=== PATIENT | male | born 1975 | race Hispanic/Latino ===

== ENCOUNTER 2019-11-12 12:51 | Emergency (ER) | payer OTHER, SELFPAY ==
--- NOTE | 2019-11-12 13:04 | DI.RAD.S_ITS ---
PROCEDURE: XR SHOULDER LT MIN 2V INDICATIONS: severe left shoulder pain, lump at AC TECHNIQUE: 3 views of the shoulder were acquired. COMPARISON: None. FINDINGS: Bones: No fractures or dislocations. No suspicious bony lesions. Visualized ribs appear intact. Extensive inferiorly directed osteophyte off the distal clavicle. Soft tissues: No suspicious soft tissue calcifications. IMPRESSION: There is extensive inferiorly directed osteophyte off the distal clavicle which may result in some sort of impingement. No evidence acute bony abnormality of the left shoulder. If clinical suspicion and/or symptoms persist, further assessment with repeat plain films, or advanced imaging (e.g., CT, MRI, or bone scan) may be helpful for further assessment. Dictated by: Clyde Keller M.D. on 11/12/2019 at 12:22 Approved by: Clyde Keller M.D. on 11/12/2019 at 12:23
--- NOTE | 2019-11-12 13:10 | ED_ITS ---
HPI - Extremity Injury (Upper) General Chief Complaint: Extremity Injury, Upper Stated Complaint: Dislocated Left Shoulder, HX Fall in 2007 Time Seen by Provider: 11/12/19 12:55 Source: patient Mode of arrival: Ambulatory Limitations: no limitations History of Present Illness HPI narrative: 43M smoker with noncontributory medical history presents with a chief complaint of left shoulder pain. He states it has been causing him tremendous pain since rolling over awkwardly in bed a few nights ago. He now has pain with any range of motion. He denies any numbness, tingling or weakness. He admits to a work related injury about 10 years ago that he never had evaluated. He denies any head or neck pain. He has taken tylenol and motrin without any relief. Related Data Previous Rx's Medication Instructions Recorded ketorolac 10 mg PO Q6H PRN #14 tab 11/12/19 Review of Systems Constitutional Constitutional: Denies chills, Denies fatigue, Denies fever(s), Denies frequent falls, Denies lethargy and Denies weakness Eyes Eyes: Denies change in vision, Denies eye discharge, Denies irritation and Denies loss of vision ENT Ears, Nose, Mouth, and Throat: Denies change in voice, Denies dizziness, Denies neck pain, Denies sore throat and Denies throat swelling Cardiovascular Cardiovascular: Denies chest pain, Denies irregular heart rhythm, Denies lightheadedness, Denies palpitations, Denies dyspnea, Denies dyspnea on exertion and Denies orthopnea Respiratory Respiratory: Denies cough, Denies dyspnea, Denies dyspnea on exertion and Denies wheezing Gastrointestinal Gastrointestinal: Denies abdominal pain, Denies change in bowel habits, Denies diarrhea, Denies nausea and Denies vomiting Musculoskeletal Musculoskeletal: Reports arthralgias, Reports limited range of motion, Denies neck pain and Denies numbness Integumentary/Breasts Skin/Breast: Denies pruritus, Denies erythema, Denies rash and Denies wounds Neurologic Neurologic: Denies behavioral changes, Denies confusion, Denies dizziness, Denies frequent falls, Denies loss of vision, Denies numbness and Denies weakness Psychiatric Psychiatric: Denies anxiety, Denies behavioral changes, Denies confusion, Denies depression, Denies homicidal ideation and Denies suicidal ideation Endocrine Endocrine: Denies fatigue, Denies flushing and Denies palpitations Hematologic/Lymphatic Hematologic/Lymphatic: Denies easy bruising Allergic/Immunologic Allergic/Immunologic: Denies urticaria, Denies throat swelling and Denies wheezing Patient History Social History Smoking Status: Current every day smoker Smoking Status: Current every day smoker alcohol intake frequency: 0-2 drinks per day Substance Use Type: does not use Exam Narrative Exam Narrative: GENERAL: [43] year old patient appears stated age. Well- nourished, well-developed patient, in mild distress. HEAD: Atraumatic. Normocephalic. EYES: Pupils equal round and reactive. Extraocular motions intact. No scleral icterus. No injection or drainage. ENT: Nose without bleeding, purulent drainage. Throat without erythema, tonsillar hypertrophy or exudate. Airway patent. NECK: Trachea midline. Non tender CARDIOVASCULAR: Regular rate and rhythm without murmurs, gallops, or rubs. RESPIRATORY: Clear to auscultation. Breath sounds equal bilaterally. No wheezes, rales, or rhonchi. GASTROINTESTINAL: Abdomen soft, non-tender, nondistended. EXTREMITIES: Full but painful range of motion of left shoulder. Tenderness the AC joint with a bit of lateral step-off. No numbness, tingling or weakness. Patient has some posterior pain he reports in his right shoulder also but has full range of motion and strength BACK: Nontender without deformity or crepitance. No flank tenderness. NEURO: AOx3. SKIN: No rash or erythema of visible areas Initial Vital Signs Initial Vital Signs: Vital Signs Temperature 98.4 F 11/12/19 13:17 Pulse Rate 72 11/12/19 13:17 Respiratory Rate 15 11/12/19 13:17 Blood Pressure 142/86 H 11/12/19 13:17 Pulse Oximetry 96 11/12/19 13:17 Procedures Orthopedic Splinting/Casting Injury #1: Side: left Upper Extremity Injury Location: shoulder Upper Extremity Immobilizer: sling/shoulder immobilizer Post splinting neuro exam: intact Post splinting vascular exam: intact Placed by: Nursing Course Orders Ordered: ED Orders 11/12/19 13:04 XR shoulder LT min 2V Stat Vital Signs Vital signs: Vital Signs - 8 hr 11/12/19 13:17 Temperature 98.4 F Pulse Rate 72 Respiratory Rate 15 Blood Pressure 142/86 H Pulse Oximetry 96 Discharge Plan Departure Patient Disposition: Home Clinical Impression: AC separation Qualifiers: Encounter type: initial encounter Laterality: left Qualified Code(s): S43.102A - Unspecified dislocation of left acromioclavicular joint, initial encounter Acute shoulder pain Qualifiers: Laterality: left Qualified Code(s): M25.512 - Pain in left shoulder Discharge Date/Time: 11/12/19 13:40 Instructions: DI for AC Joint Separation Activity Restrictions/Additional Instructions: *You have been diagnosed with [acute on chronic left AC separation, possibly a poorly healed old fracture of your clavicle] *What to do: *Take medications as directed and where the supplied sling until follow-up *Follow up with your primary care provider in 2-3 days, call for an a ppointment. Let them know you were seen in the Emergency Department and that we ask that you be seen in follow up. I have also included contact info for the [facility] in [place] *Return to ER if you should have any new, worsening or concerning symptoms Prescriptions: New ketorolac 10 mg tablet 10 mg PO Q6H PRN (Reason: pain) Qty: 14 RF: 0 Referrals: Yaz Reyez MD [Physician] -
[2019-11-12 13:17] VITALS: BP 142/86; PULSE 72; RESP 15; TEMP 36.9; O2SAT 96; BMI 27.3
== END 2019-11-12 13:40 | disposition home or self-care (01) ==
PROVIDERS: Emergency Provider Emergency Medicine
DX: S43.102A Unspecified dislocation of left acromioclavicular joint, initial encounter (principal); M25.512 Pain in left shoulder
CPT/HCPCS: 73030; 99283

== ENCOUNTER 2019-12-12 13:39 | Emergency (ER) | payer OTHER, SELFPAY ==
[2019-12-12 13:55] VITALS: BP 148/105; PULSE 110; RESP 16; TEMP 36; O2SAT 96; BMI 24.3
--- NOTE | 2019-12-12 14:02 | DI.RAD.S_ITS ---
PROCEDURE: XR HUMERUS LT 2V INDICATIONS: pain and pop after lifting TECHNIQUE: 2 views of the humerus were acquired. COMPARISON: [facility], CR, XR HUMERUS RT 2V, 12/12/2019, 13:54. [facility], CR, XR SHOULDER LT MIN 2V, 11/12/2019, 13:07. FINDINGS: Bones: No acute fractures or dislocations. There is superior subluxation of the left acromioclavicular joint redemonstrated. Hypertrophic calcifications are redemonstrated along the inferior aspect of the distal left clavicle. Soft tissues: There is a small calcification adjacent to the greater tuberosity along the distal rotator cuff which may reflect calcific tendinitis. IMPRESSION: 1. No acute fracture or dislocation. 2. 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 3. Hypertrophic calcifications along the inferior aspect of the distal clavicle. The findings are nonspecific but are suggestive of dystrophic calcifications related to prior trauma. Dictated by: Larry Malhotra M.D. on 12/12/2019 at 14:32 Approved by: Larry Malhotra M.D. on 12/12/2019 at 14:37
--- NOTE | 2019-12-12 14:02 | DI.RAD.S_ITS ---
PROCEDURE: XR HUMERUS RT 2V INDICATIONS: pain and pop after lifting TECHNIQUE: 2 views of the humerus were acquired. COMPARISON: None. FINDINGS: Bones: No fractures or dislocations. No suspicious bony lesions. Soft tissues: No suspicious soft tissue calcifications. IMPRESSION: 1. No fracture or dislocation. Dictated by: Larry Malhotra M.D. on 12/12/2019 at 14:30 Approved by: Larry Malhotra M.D. on 12/12/2019 at 14:32
--- NOTE | 2019-12-12 16:36 | ED_ITS ---
HPI - Extremity Injury (Upper) <ИРИНА Herring - Last Filed: 12/12/19 23:57> General Chief Complaint: Extremity Injury, Upper Stated Complaint: pulled something in muscle Time Seen by Provider: 12/12/19 15:41 Source: patient Mode of arrival: Ambulatory Limitations: no limitations History of Present Illness HPI narrative: This is a 44-year-old male, smoker, who has history of remote injury to left shoulder 10 years ago and recent visit to ED about a month ago with left shoulder presents to ED with bilateral biceps discomfort and deformity. Patient reports he was picking up someone to help yesterday and felt something pulled in deltoid region. Patient right dominant hand. Patient also reports right deltoid/biceps pain radiating to right shoulder. Patient denies fall or contusion to right shoulder. 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 Patient reports pain is 7/10. He denies taking Cipro or other antibiotic medication recently or using anaerobic steroids in the past. Patient reports intact sensation in bilateral hand and is able to move fingers/wrist without difficulty. Denies taking any medications for pain. Related Data Previous Rx's Medication Instructions Recorded ketorolac 10 mg PO Q6H PRN #14 tab 11/12/19 Allergies Allergy/AdvReac Type Severity Reaction Status Date / Time No Known Allergies Allergy Verified 12/12/19 16:53 Review of Systems <ИРИНА Herring - Last Filed: 12/12/19 23:57> Review of Systems Narrative: General: Denies fever, chills, fatigue, malaise, sweats. Respiratory: Denies dyspnea, cough, wheezing, hemoptysis, sputum. Cardiovascular: Denies chest pain, palpitations, orthopnea, edema. Musculoskeletal: See HPI Skin: Denies rash, skin lesions, or other. Neurologic: Denies weakness, headache, numbness, change in speech, confusion, seizures, incoordination. Patient History <ИРИНА Herring - Last Filed: 12/12/19 23:57> Social History Smoking Status: Current every day smoker Smoking Status: Current every day smoker alcohol intake frequency: 0-2 drinks per day Substance Use Type: marijuana Exam <ИРИНА Herring - Last Filed: 12/12/19 23:57> Narrative Exam Narrative: General appearance: well developed, well nourished, in no acute distress. Head: normocephalic, atraumatic, no scalp lesions, non-tender. ENT: Hearing grossly intact. Nose without bleeding, purulent discharge. Airway patent. Neck/Thyroid: neck supple, full range of motion, no visible masses or meningeal signs. No JVD, non-tender without lymphadenopathy. Skin: no suspicious rashes, lesions over visible areas. Warm and dry and appropriate color for ethnicity. Heart: no clubbing, no cyanosis, no edema. Lungs: Breathing even and unlabored. No stridor. No accessory muscles used. Able to speak in full sentences. Chest: normal shape and expansion. Abdomen: non-obese, non-distended. Neurologic: alert and oriented. 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 Psych: good eye contact, normal affect. Initial Vital Signs Initial Vital Signs: Vital Signs Temperature 96.8 F L 12/12/19 13:55 Pulse Rate 110 H 12/12/19 13:55 Respiratory Rate 16 12/12/19 13:55 Blood Pressure 148/105 H 12/12/19 13:55 Pulse Oximetry 96 12/12/19 13:55 Extrem Right upper extremity: shoulder/upper arm Details: abnormal to inspection (Big ball of muscle in mid medial upper arm, laura arm appearance), tenderness, swelling, abnormal ROM Details: pain with active ROM (slow to abduct/adduct, forward elevation, difficulty with internal rotation) and pain with passive ROM and deformity, elbow/forearm Details: normal to inspection and normal ROM; no tenderness and no swelling and hand Details: normal to inspection, normal capillary refill, neuromotor exam normal, neurosensory exam normal, vascular exam Details: radial pulse present and normal capillary refill, normal ROM of fingers and no swelling; no tenderness Left upper extremity: shoulder/upper arm Details: abnormal to inspection (flaccid bicep/deltoid, high rising small bicep in medial upper arm when flexed), tenderness and abnormal ROM Details: pain with active ROM and pain with passive ROM, elbow/forearm Details: normal to inspection and normal ROM; no tenderness and no swelling and hand Details: normal to inspection, normal capillary refill, neuromotor exam normal, neurosensory exam normal, vascular exam Details: radial pulse present and normal capillary refill and normal ROM of fingers; no tenderness <Ralph Kincaid MD - Last Filed: 12/15/19 13:02> Initial Vital Signs Initial Vital Signs: Vital Signs Temperature 96.8 F L 12/12/19 13:55 Pulse Rate 110 H 12/12/19 13:55 Respiratory Rate 16 12/12/19 13:55 Blood Pressure 148/105 H 12/12/19 13:55 Pulse Oximetry 96 12/12/19 13:55 Procedures <ИРИНА Herring - Last Filed: 12/12/19 23:57> Orthopedic Splinting/Casting Injury #1: Side: right Upper Extremity Injury Location: upper arm Upper Extremity Immobilizer: Ryne wrap Post splinting neuro exam: intact Post splinting vascular exam: intact Placed by: Nursing Injury #2: Side: left Upper Extremity Injury Location: upper arm Upper Extremity Immobilizer: Ryne wrap Post splinting neuro exam: intact Post splinting vascular exam: intact Placed by: Nursing Scores <ИРИНА Herring - Last Filed: 12/12/19 23:57> GCS Rolanda coma scale eye opening: Spontaneous Rolanda coma scale verbal response: Orientated Mead coma scale motor response: Obey commands Mead coma scale total score: 15 Course <ИРИНА Herring - Last Filed: 12/12/19 23:57> Orders Ordered: Discontinued Medications Acetaminophen (Tylenol) 650 mg PO NOW ONE Stop: 12/12/19 16:46 Last Admin: 12/12/19 16:56 Dose: 650 mg Documented by: YASMINE Ibuprofen (Advil) 400 mg PO NOW ONE Stop: 12/12/19 16:46 Last Admin: 12/12/19 16:56 Dose: 400 mg Documented by: YASMINE Consultations Consultation #1: Dr. Kincaid consulted with physical findings and Xray test result. He recommended to evaluate with CT on upper extremity without contrast. NALLELY reza came to inform to consult radiologist this so cause high radiation exposure on patient. Consulted the radiologist and recommend US for MRI for bicep tendon rupture or other etiology but MRI which is not available at this time. He states CT is not recommended. However, US test is tech dependant and found that US reza had not done this study in the past and will defer US test. Time: 16:43 Consultation #2: Dr. Kothari consulted on the phone with physical findings and is was unable to obtain MRI today to confirm bicep tendon injury in bilateral upper arm. He recommended MRI test as well for his condition and likely he nasal surgeries to repair this. Dr. Kothari was informed patient was given the [facility] orthopedist information follow-up. Time: 19:03 Vital Signs Vital signs: Vital Signs - 8 hr 12/12/19 13:55 Temperature 96.8 F L Pulse Rate 110 H Respiratory Rate 16 Blood Pressure 148/105 H Pulse Oximetry 96 <Ralph Kincaid MD - Last Filed: 12/15/19 13:02> Orders Ordered: Discontinued Medications Acetaminophen (Tylenol) 650 mg PO NOW ONE Stop: 12/12/19 16:46 Last Admin: 12/12/19 16:56 Dose: 650 mg Documented by: YASMINE Ibuprofen (Advil) 400 mg PO NOW ONE Stop: 12/12/19 16:46 Last Admin: 12/12/19 16:56 Dose: 400 mg Documented by: YASMINE Vital Signs Vital signs: Vital Signs - 8 hr 12/12/19 13:55 Temperature 96.8 F L Pulse Rate 110 H Respiratory Rate 16 Blood Pressure 148/105 H Pulse Oximetry 96 MDM - Extremity Injury (Upper) <ИРИНА Herring - Last Filed: 12/12/19 23:57> Differential Diagnosis Differential diagnosis: Likely other (partial/full proximal bicep tendon injury, distal bicep tendon injury, tendonitis, shoulder strain) Medical Records Attestation: I reviewed the patient's medical records. Imaging Data XR-Humerus, RT: Radiologist's Impression: [address] [address] XRay Report Signed Patient: Rodriguez Miguel RMR#: [id number] : 1975Acct:[id number] Age/Sex: 44 / MDate of Service: 12/12/19 Loc: ED Accession Number: [id number] Procedure: XR humerus RT 2V Ordering Provider: Ralph Kincaid MD PROCEDURE: XR HUMERUS RT 2V INDICATIONS: pain and pop after lifting TECHNIQUE: 2 views of the humerus were acquired. COMPARISON: None. FINDINGS: Bones: No fractures or dislocations. No suspicious bony lesions. Soft tissues: No suspicious soft tissue calcifications. IMPRESSION: 1. No fracture or dislocation. Dictated by: Larry Malhotra M.D. on 12/12/2019 at 14:30 Approved by: Larry Malhotra M.D. on 12/12/2019 at 14:32 XR-Humerus, LT: Radiologist's Impression: [address] [address] XRay Report Signed Patient: Rodriguez Miguel RMR#: [id number] : 1975Acct:[id number] Age/Sex: 44 / MDate of Service: 12/12/19 Loc: ED Accession Number: [id number] Procedure: XR humerus LT 2V Ordering Provider: Ralph Kincaid MD PROCEDURE: XR HUMERUS LT 2V INDICATIONS: pain and pop after lifting TECHNIQUE: 2 views of the humerus were acquired. COMPARISON: [facility], CR, XR HUMERUS RT 2V, 12/12/2019, 13:54. [facility], CR, XR SHOULDER LT MIN 2V, 11/12/2019, 13:07. FINDINGS: Bones: No acute fractures or dislocations. There is superior subluxation of the left acromioclavicular joint redemonstrated. Hypertrophic calcifications are redemonstrated along the inferior aspect of the distal left clavicle. Soft tissues: There is a small calcification adjacent to the greater tuberosity along the distal rotator cuff which may reflect calcific tendinitis. IMPRESSION: 1. No acute fracture or dislocation. 2. 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 3. Hypertrophic calcifications along the inferior aspect of the distal clavicle. The findings are nonspecific but are suggestive of dystrophic calcifications related to prior trauma. Dictated by: Larry Malhotra M.D. on 12/12/2019 at 14:32 Approved by: Larry Malhotra M.D. on 12/12/2019 at 14:37 MDM Narrative Medical decision making narrative: This is a 44 year male who presents to ED with bilateral biceps/deltoid discomfort and deformity after he picked up someone last night and felt a pop. X-ray test does not show acute fractures or dislocation on humerus bilaterally. Left AC joint with superior displacement of the distal clavicle above the acromion with sequela of chronic AC joint separation. Physical exam is consistent with bilateral bicep tendon injury, likely proximal in right arm and distal in left arm. Patient has intact sensation and circulation distally. Slight difficulty internal rotation on righ t arm due to bulkage of right bicep, otherwise slow but is able to abduct and adduct affected arm with forward flexion. Considered MRI tests but it was not able to obtain today. Considered US test as radiologist suggested but it is tech dependent for a good ultrasound exam which tech has not had done it before and this was deferred. Affected arm was placed on Ryne wrap and patient was medicated with Tylenol and Motrin for discomfort. Advised to use ice pack on affected site for pain and swelling. Patient advised to follow-up with [facility] orthopedist for further evaluation and imaging test. Return precautions were discussed with patient and he verbalized understanding in agreement with treatment plan. Discharge Plan Departure Patient Disposition: Home Clinical Impression: Injury of tendon of biceps Right shoulder strain Qualifiers: Encounter type: initial encounter Qualified Code(s): S46.911A - Strain of unspecified muscle, fascia and tendon at shoulder and upper arm level, right arm, initial encounter Discharge Date/Time: 12/12/19 18:00 Instructions: DI for Shoulder Tendinopathy, DI for Shoulder Sprain Activity Restrictions/Additional Instructions: You have been diagnosed with [bilateral biceps tendon injury and right shoulder strain.]. What to do: *Take your medications as directed. You can use [id number] Tylenol and or Motrin as needed for discomfort. Use Ryne wrap on bilateral upper arm. *Follow up with your primary care provider in 2-3 days, call for an appointment. Please follow-up with [facility] orthopedist further imaging test and evaluation. Let them know you were seen in the ED and that we asked you to be seen in follow up. *Return to ED if you have any new, worsening, or concerning symptoms, such as [worsening pain, weakness to extremities, tingling/numbness to affected extremities, fever, chest pain, breathing difficulty or any acute concerns]. Prescriptions: No Action ketorolac 10 mg tablet 10 mg PO Q6H PRN (Reason: pain) Qty: 14 RF: 0 Referrals: [facility] [Provider Group] [facility] [Outside] <Ralph Kincaid MD - Last Filed: 12/15/19 13:02> Cosign ED Attending Cosignature Attestation: I was immediately available in the department for consultation. This documentation has been reviewed and I agree with assessment and plan. Supervised by Ralph Kincaid MD
[2019-12-12] MEDS: IBUPROFEN 400 MG TABLET PO (16:56)
[2019-12-12] MEDS: ACETAMINOPHEN 325 MG TABLET 650 MG PO (16:56)
== END 2019-12-12 18:00 | disposition home or self-care (01) ==
PROVIDERS: Emergency Provider Nurse Practitioner Family
DX: S46.911A Strain of unspecified muscle, fascia and tendon at shoulder and upper arm level, right arm, initial encounter (principal)
CPT/HCPCS: 73060; 99283; 99284

== ENCOUNTER 2020-01-28 17:01 | Emergency (ER) | payer OTHER, SELFPAY ==
[2020-01-28 17:05] VITALS: BP 160/96; PULSE 97; RESP 16; TEMP 36.6; O2SAT 96; BMI 27.3
[2020-01-28] MEDS: ONDANSETRON 4 MG/2 ML INJ IV (17:24)
[2020-01-28] MEDS: PHENobarbital 65 MG/ML VIAL 130 MG IV (17:25)
[2020-01-28 17:36] VITALS: BP 159/94; PULSE 94; RESP 16; O2SAT 99
--- NOTE | 2020-01-28 17:42 | PC.NURSE ---
171: Pt was advised he will be dc'd with [facility] to [facility], pt started hacking coughing and spitting up saliva in garbage. Allegra Olivares at bedside. IV placed to give zofran and Phenobarbital per APR. 173: Meds given and on med hold until DC. 174: Pt states feeling much better post zofran. VS taken and IV removed. awaiting DC paperwork. Pt requesting for RN to call my mother Norma and let her know that i am going to [facility] and was seen in the ED [phone]. Attempted phone call. Male answered and asked if I spoke Romanian, when advised I do not he hung up on me.
--- NOTE | 2020-01-28 18:31 | ED_ITS ---
HPI - Alcohol <BELKIS Anna- - Last Filed: 01/28/20 18:37> General Chief Complaint: Toxicology Problem Stated Complaint: Fit for Custodial Time Seen by Provider: 01/28/20 17:04 Source: patient Mode of arrival: other (Police) Limitations: no limitations History of Present Illness HPI narrative: The patient is a 44-year-old male current smoker with history of injury of biceps tendon who presents with a chief complaint of needing a fit for senior living. He is brought in by PD after with the patient states is an incident regarding his fiancee. The patient states that he is concerned about alcohol withdrawal as he drinks 4-5 pt of alcohol per day. He states he has had a pt of alcohol today starting at 8:00 a.m.. States he does feel very jumpy and twitchy. Denies any chest pain or shortness of breath. Denies any other drug use other than alcohol marijuana. He states he has also had marijuana to smoke today. Related Data Previous Rx's Medication Instructions Recorded ketorolac 10 mg PO Q6H PRN #14 tab 11/12/19 Allergies Allergy/AdvReac Type Severity Reaction Status Date / Time No Known Allergies Allergy Verified 12/12/19 16:53 Review of Systems <SAIMA Anna - Last Filed: 01/28/20 18:37> Review of Systems Narrative: GENERAL: Denies chills, fatigue, malaise, fever, sweats. HEENT: Denies sinus pain, ear pain, sore throat, difficulty swallowing, dizziness. RESPIRATORY: Denies dyspnea, cough, wheezing, hemoptysis, sputum. CARDIOVASCULAR: Denies chest pain, palpitations, orthopnea, edema, GASTROINTESTINAL: Denies nausea, vomiting, abdominal pain, diarrhea, constipation, melena. : Denies dysuria, frequency, incontinence, hematuria, urinary retention. MUSCULOSKELETAL: denies weakness, joint pain, or bony pain SKIN: Denies rash, skin lesions, or other NEUROLOGIC: See HPI PSYCHIATRIC: See HPI 12 point review of systems is negative except for those stated above Patient History <SAIMA Anna - Last Filed: 01/28/20 18:37> Social History Smoking Status: Current every day smoker Smoking Status: Current every day smoker alcohol intake frequency: 0-2 drinks per day Substance Use Type: marijuana Exam <ALEXANDRA Anna - Last Filed: 01/28/20 18:37> Narrative Exam Narrative: GENERAL: This is a well-nourished, well-developed patient, appears teary HEAD: Atraumatic. Normocephalic. No temporal or scalp tenderness. EYES: Pupils equal round and reactive. Extraocular motions intact. No scleral icterus. No injection or drainage. ENT: Nose without bleeding, purulent drainage or septal hematoma. Throat without erythema, tonsillar hypertrophy or exudate. Uvula midline. Airway patent. NECK: Trachea midline. No JVD or lymphadenopathy. Supple, nontender, no meningeal signs. CARDIOVASCULAR: Regular rate and rhythm RESPIRATORY: Clear to auscultation. Breath sounds equal bilaterally. No wheezes, rales, or rhonchi. No cough. No increased respiratory effort. No accessory muscle use. GASTROINTESTINAL: Abdomen soft, non-tender, nondistended. Active bowel sounds all 4 quadrants No guarding. EXTREMITIES: No clubbing, cyanosis, or edema. No joint tenderness, effusion, or edema noted. BACK: Nontender without deformity or crepitance. No flank tenderness. NEURO: AOx3. Slight tremor noted. Stable gait using all extremities equally. Teary, perseverative SKIN: No rash or erythema on visible skin Initial Vital Signs Initial Vital Signs: Vital Signs Temperature 97.9 F 01/28/20 17:05 Pulse Rate 97 H 01/28/20 17:05 Respiratory Rate 16 01/28/20 17:05 Blood Pressure 160/96 H 01/28/20 17:05 Pulse Oximetry 96 01/28/20 17:05 <Marlin Crespo DO - Last Filed: 01/29/20 18:06> Initial Vital Signs Initial Vital Signs: Vital Signs Temperature 97.9 F 01/28/20 17:05 Pulse Rate 97 H 01/28/20 17:05 Respiratory Rate 16 01/28/20 17:05 Blood Pressure 160/96 H 01/28/20 17:05 Pulse Oximetry 96 01/28/20 17:05 Scores <ALEXANDRA Anna - Last Filed: 01/28/20 18:37> GCS Rolanda coma scale eye opening: Spontaneous Rolanda coma scale verbal response: Orientated Rolanda coma scale motor response: Obey commands [place] coma scale total score: 15 Course <ALEXANDRA Anna - Last Filed: 01/28/20 18:37> Orders Ordered: Discontinued Medications Ondansetron HCl (Ondansetron 4 Mg/2 Ml Inj) 4 mg IV NOW ONE Stop: 01/28/20 17:19 Last Admin: 01/28/20 17:24 Dose: 4 mg Documented by: NANCIE Phenobarbital (Phenobarbital 65 Mg/Ml Vial) 130 mg IV NOW ONE Stop: 01/28/20 17:19 Last Admin: 01/28/20 17:25 Dose: 130 mg Documented by: NANCIE Vital Signs Vital signs: Vital Signs - 8 hr 01/28/20 17:05 01/28/20 17:36 Temperature 97.9 F Pulse Rate 97 H 94 H Respiratory Rate 16 16 Blood Pressure 160/96 H 159/94 H Pulse Oximetry 96 99 <Marlin Crespo DO - Last Filed: 01/29/20 18:06> Orders Ordered: Discontinued Medications Ondansetron HCl (Ondansetron 4 Mg/2 Ml Inj) 4 mg IV NOW ONE Stop: 01/28/20 17:19 Last Admin: 01/28/20 17:24 Dose: 4 mg Documented by: NANCIE Phenobarbital (Phenobarbital 65 Mg/Ml Vial) 130 mg IV NOW ONE Stop: 01/28/20 17:19 Last Admin: 01/28/20 17:25 Dose: 130 mg Documented by: NANCIE Vital Signs Vital signs: Vital Signs - 8 hr 01/28/20 17:05 01/28/20 17:36 Temperature 97.9 F Pulse Rate 97 H 94 H Respiratory Rate 16 16 Blood Pressure 160/96 H 159/94 H Pulse Oximetry 96 99 MDM - Alcohol <ALEXANDRA Anna - Last Filed: 01/28/20 18:37> MDM Narrative Medical decision making narrative: The patient is a 44-year-old male who presents needing a fit for senior living evaluation. He is in no acute distress, has normal vital signs is not febrile or tachycardic. He is concerned about alcohol withdrawal as he drinks several pt of alcohol per day. However his CIWA is less than 7. I discussed with him that this is not a level where retreat alcohol withdrawal, encouraged him to follow up with primary care provider when he gets out of senior living. Upon hearing that he would be discharged to senior living, the patient started complaining of nausea and vomiting, vomiting mucous. He was given an IV, Zofran and phenobarbital to help prevent detox .symptoms He felt much improved after this and was discharged to police after his medication hold. Discharge Plan Departure Patient Disposition: Home Clinical Impression: Alcoholism Instructions: DI for Alcohol Use Disorder Activity Restrictions/Additional Instructions: Today you are fit for senior living. Please follow-up with a primary care provider when you are able. I have given you contact information to the [facility] resource specialist teacher, who can help you identify a primary care provider. Prescriptions: No Action ketorolac 10 mg tablet 10 mg PO Q6H PRN (Reason: pain) Qty: 14 RF: 0 Referrals: [facility] [Outside] <Marlin Crespo DO - Last Filed: 01/29/20 18:06> Lynnette ED Attending Lynnetteature Attestation: I WAS IMMEDIATELY AVAILABLE IN THE DEPARTMENT FOR CONSULTATION. DOCUMENTATION HAS BEEN REVIEWED. I AGREE WITH ASSESSMENT AND PLAN.
== END 2020-01-28 17:49 | disposition home or self-care (01) ==
LOC: ED 17:39
PROVIDERS: Emergency Provider Nurse Practitioner Family
DX: Z02.89 Encounter for other administrative examinations (principal); F10.20 Alcohol dependence, uncomplicated
CPT/HCPCS: 96374; 96375; 99281; 99284; J2405; J2560

== ENCOUNTER 2022-08-11 13:49 | Emergency (ER) | payer OTHER, MEDICAID, SELFPAY ==
[2022-08-11 13:52] VITALS: BP 158/100; PULSE 145; RESP 20; TEMP 36.2; O2SAT 97; BMI 28.1
--- NOTE | 2022-08-11 13:57 | PC.NURSE ---
Pt refusing EKG until he is allowed to make a phone call. R arm Handcuffed to bedrail. Advised he will be able to make a phone call after EKG is obtained. Pt HR 138-140. Mild diaphoresis. Reports he is untrustful of ER staff. Asking to go to residential.
[2022-08-11 13:59] VITALS: PULSE 129; RESP 23; O2SAT 94
[2022-08-11 14:00] VITALS: BP 177/102; PULSE 125; RESP 19; O2SAT 95
--- NOTE | 2022-08-11 14:00 | DI.RAD.S_ITS ---
PROCEDURE: XR CHEST 1V INDICATIONS: chest pain TECHNIQUE: One view of the chest was acquired. COMPARISON: None. FINDINGS: Surgical changes and devices: None. Lungs and pleura: Lungs are clear. No pleural effusions or pneumothorax. Mediastinum: Mediastinal contours appear normal. Heart size is normal. Bones and chest wall: No suspicious bony lesions. Overlying soft tissues appear unremarkable. Chronic posttraumatic changes at the left distal clavicle. IMPRESSION: No acute cardiopulmonary abnormality. Approved by: Sergio Fontaine M.D. on 08/11/2022 at 14:31
--- NOTE | 2022-08-11 14:10 | ED.ARRPALP ---
HPI - Arrhythmia/Palpitations General Chief Complaint: Arrhythmia/Palpitations Stated Complaint: fit for nursing home Time Seen by Provider: 08/11/22 14:00 History of Present Illness HPI narrative: Patient is a 46-year-old male history of alcohol abuse presenting today by police for fit for nursing home. Complaining of chest pain. He reports he is a heart condition he is not sure what is. He is noted to be sinus tachycardic. Initially refused all treatment and interventions. Needed a phone call appears anxious and agitated. Initially denied alcohol use however reports that he had 1 drink and then his partner kicked him out of the house. Related Data Allergies Allergy/AdvReac Type Severity Reaction Status Date / Time No Known Allergies Allergy Verified 12/12/19 16:53 Review of Systems Review of Systems ROS Unobtainable: All systems reviewed & are unremarkable except as noted in HPI and below Patient History Social History Smoking Status: Current every day smoker Smoking Status: Current every day smoker alcohol intake frequency: 0-2 drinks per day Substance Use Type: marijuana Exam Initial Vital Signs Initial Vital Signs: Vital Signs Temperature 97.1 F L 08/11/22 13:52 Pulse Rate 145 H 08/11/22 13:52 Respiratory Rate 20 08/11/22 13:52 Blood Pressure 158/100 H 08/11/22 13:52 Pulse Oximetry 97 08/11/22 13:52 Oxygen Delivery Method Room Air 08/11/22 13:52 GENERAL: Agitated angry confrontational 46-year-old male handcuffed to bed HEENT: Head atraumatic,EOMI, pupils reactive, face symmetric, moist mucous membranes CARDIOVASCULAR: Sinus tachycardic regular RESPIRATORY: Breath sounds equal bilaterally, no wheezes rales or rhonchi. ABDOMEN: Soft, nontender. Normoactive bowel sounds all 4 quadrants. No guarding or rebound. EXTREMITIES: Normal range of motion, no clubbing or edema. Neurovascularly intact NEUROLOGICAL: Alert and oriented x4. SKIN: Warm, dry, no laceration, no petechiae, no rashes or lesions. Course Orders Ordered: ED Orders 08/11/22 14:00 Chest [XR chest 1V] Stat 08/11/22 14:02 EKG-12 Lead Stat Vital Signs Vital signs: Vital Signs - 8 hr 08/11/22 13:52 08/11/22 13:59 08/11/22 14:00 Temperature 97.1 F L Pulse Rate 145 H 129 H Respiratory Rate 20 23 Blood Pressure 158/100 H 177/102 H Pulse Oximetry 97 94 Oxygen Delivery Method Room Air 08/11/22 14:00 Temperature Pulse Rate 125 H Respiratory Rate 19 Blood Pressure Pulse Oximetry 95 Oxygen Delivery Method MDM - Arrhythmia/Palpitations Imaging Data Chest x-ray: Radiologist's Impresson: PROCEDURE:? XR CHEST 1V ? INDICATIONS:? chest pain ? TECHNIQUE:? One view of the chest was acquired.? ? COMPARISON:? None. ? FINDINGS:? ? Surgical changes and devices:? None.? ? Lungs and pleura:? Lungs are clear.? No pleural effusions or pneumothorax.? ? Mediastinum:? Mediastinal contours appear normal.? Heart size is normal.? ? Bones and chest wall:? No suspicious bony lesions.? Overlying soft tissues appear unremarkable.? Chronic posttraumatic changes at the left distal clavicle. ? IMPRESSION:? No acute cardiopulmonary abnormality. ? ? ? Approved by: Sergio Fontaine M.D. on 08/11/2022 at 14:31? ECG Data Interpretation: Sinus tachycardia rate [address] changes no T-wave inversions mild artifact noted MDM Narrative Medical decision making narrative: Patient extremely confrontational not able to tell me what his heart condition is. Refusing care. Seems extremely agitated EKG does not show any obvious ST changes chest x-ray does not show any pneumothorax, or pneumonia. Refuses to answer questions about alcohol and polysubstance use which he has been seen here before previously. Repeat reports that he does not remember when his last drink was. At this time sinus tachycardia with extreme anger and agitation. He is not hypoxic speaking in full sentences Discharge Plan Departure Patient Disposition: Home Clinical Impression: Sinus tachycardia Instructions: DI for Chest Pain Activity Restrictions/Additional Instructions: Fit for nursing home Patient refused most things. EKGs show sinus tachycardia chest x-ray was negative. Please follow-up with your primary care provider you may require further testing such as blood work and stress test Stand Alone Forms: Patient Portal/API
--- NOTE | 2022-08-11 14:23 | PC.NURSE ---
Pt more calm and cooperative at this time. HR decreased from 150 to 124 without intervention. [employer] reports to RN that his albuterol inhaler was given to him on scene.
== END 2022-08-11 14:31 | disposition home or self-care (01) ==
PROVIDERS: Emergency Provider Emergency Medicine
DX: R00.0 Tachycardia, unspecified (principal)
CPT/HCPCS: 71045; 93005; 99282; 99284